=== PATIENT | female | born 2000 | race African-American/Black ===

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

== ENCOUNTER 2023-12-25 10:30 | Emergency (ER) | payer OTHER ==
[~2023-12-25] VITALS: Ht 147.3 cm; Wt 47.6 kg
[2023-12-25 10:32] VITALS: PULSE 75; RESP 18; TEMP 98.6
[2023-12-25] MEDS ORDERED: THERAFLU MS SE1 EACH PO (11:26)
[2023-12-25] MEDS ORDERED: AZITHROMYCIN250 MG PO (11:26)
[2023-12-25 12:36] VITALS: BP 131/74; PULSE 73; RESP 18; TEMP 98.6; O2SAT 99
== END 2023-12-25 11:33 | disposition home or self-care (01) ==
LOC: FSED 10:48
DX: R05.9 Cough, unspecified (principal); J06.9 Acute upper respiratory infection, unspecified; J02.9 Acute pharyngitis, unspecified; R09.81 Nasal congestion; Z11.52 Encounter for screening for COVID-19
CPT/HCPCS: 0223U; 83518; 87400; 99283